=== PATIENT | male | born 1990 | race Caucasian/White ===

== ENCOUNTER 2016-11-28 18:58 | Emergency (ER) | payer OTHER ==
[~2016-11-28] VITALS: Ht 190.5 cm; Wt 80.5 kg
[~2016-11-28 18:58] MED LIST: ONDA4TAB7 SL
[2016-11-28 19:02] VITALS: TEMP 37.4; Ht 190.5 cm; Wt 80.5 kg
[2016-11-28] MEDS ORDERED: ALPR-411 PO (19:19)
[2016-11-28] MEDS ORDERED: AMOXICILLIN HOME PACK 250 MG/TAB PO STA (19:26)
[2016-11-28] MEDS ORDERED: AMOXICILLIN 250 MG CAP PO STA (19:26)
[2016-11-28] MEDS ORDERED: LIDOCAINE/EPINEPHRINE 1% 20 ML VIAL INFIL STA (19:26)
[2016-11-28] MEDS ORDERED: CHLORHEXIDINE GLUCONATE 0.12% 480 ML MT STA (19:26)
[2016-11-28] MEDS ORDERED: CHLORHEXIDINE GLUCONATE 0.12% 15 ML UDP MT STA (19:33)
--- NOTE | 2016-11-28 20:39 | EMERGENCY ROOM VISIT NOTE ---
ED Visit Note First contact with patient: 19:11 Chief Complaint: Facial Laceration History of Present Illness: This patient is a 26-year-old male who presents to the Emergency Department via private vehicle for evaluation of their facial laceration. Patient sustained the laceration while attempting to pull out a drawer on a dresser that was stuck, when it finally gave way and his hand slipped and accidentally punched himself in the face on the upper lip. They report a moderate amount of bleeding initially. They report no loss of consciousness. They deny any headache, visual disturbance, nausea, vomiting, or neck pain. They have tried nothing for the pain. Patient rates his current discomfort as a 4/10. Patient's Tetanus status is believed to be currently up-to -date. Medications: As noted below Allergies: None PMH: No pertinent SHx: Patient lives locally ROS: All pertinent positive and negative review of systems are appropriately documented in the History of Present Illness. Physical Exam: VITAL SIGNS - Vital signs and nursing notes were reviewed. Stable. GENERAL -26-year-old male appearing his stated age. Communicates well with provider and answers questions appropriately. SKIN - There is a 3 cm laceration noted intraorally in the linear fashion vertically on the upper lip midline without frenulum disruption as well as a 1 cm laceration at the philtrum vertically midline. The edges gape apart with traction. There is active bleeding appreciated. Laceration is communicating. No deep structures including vessels, musculature, or bony structures are appreciated. HEAD - Normocephalic. No Cobb's Sign or Raccoon's Eyes. No depressed skull fractures palpable. EYES - PERRL with EOMI bilaterally. Without subconjunctival hemorrhage. No hyphema. EARS - No deformities of external structures noted on gross examination bilaterally. No hemotympanum present. No tympanic perforation noted. NOSE - Midline and without cyanosis. No epistaxis or clear watery discharge noted. Septum midline without deviation. No septal hematoma noted. No overlying ecchymosis noted. MOUTH/OROPHARYNX - Without perioral cyanosis. Tongue midline with equal elevation of palate bilaterally. No blood noted in the oropharynx. No tonsillar hypertrophy, erythema, or exudates noted. No dental fractures noted. The teeth are in good repair. ED Course: Patient was seen and evaluated by myself. Patient had no focal neurological deficits. Patient's exam is otherwise unremarkable. Patient reports no headaches , visual disturbances, nausea, vomiting, or over-lethargy. Risks and benefits of performing primary wound closure versus no repair were discussed with the patient who verbalizes understanding. Verbal consent was obtained prior to performing the procedure. 3 cc of 1% buffered lidocaine with epinephrine was used to anesthetize the 2 lacerations. The wound was cleansed and prepped in the typical sterile fashion utilizing normal saline. 500 mg of amoxicillin by mouth, and Peridex mouthwash was utilized prior to the repair. The wound was sterilely draped. Once proper anesthetization was established, the wound was further examined and demonstrated no deep involvement but the 2 lacerations or communicating. The wound was copiously irrigated with normal saline. The inner lip wound was closed using 3 simple, 6-0 Vicryl sutures with the wound edges being well approximated. Attention was then turned to the exterior laceration. 3, 6-0 nylon sutures were utilized to close this well. Patient tolerated the procedure well. No complications were met. The wound was cleansed and dressed with a Bacitracin dressing. Patient educated on worrisome symptoms for return visit to the Emergency Department. Patient discharged to home in good condition. He'll be given a prescription for amoxicillin as well as a few day course of the Peridex mouthwash to help prevent infection secondary to the communicating laceration. In the evaluation and treatment of this patient, the following differential diagnoses were considered: Concussion, Contrecoup Injury, Brain Tumor, Depression, Encephalitis, Hypothyroidism, Meningitis, CVA, TIA, Migraine, Cluster Headache, Intracranial Abnormality, Intracranial Hemorrhage, Subdural Hematoma, Subarachnoid Hemorrhage, Hydrocephalus. Patient called to the emergency department and spoke with the pharmacist on . The patient was concern because his prescription for amoxicillin was sent to the pharmacy. Unfortunately last night, the prescription was printed, and handed to the patient as there was no pharmacy entered into the computer. I personally spoke with the patient around 1:20 PM, and he informed me that he was able to find a prescription, and had one have it filled and about one hour period. Current/Historical Medications Scheduled Alprazolam (Xanax), 0.5 MG PO PRN UD Amoxicillin (Amoxicillin), 500 MG PO TID Allergies Coded Allergies: No Known Allergies (Unverified , 08/05/12) Vital Signs Date Time Temp Pulse Resp B/P (MAP) Pulse Ox O2 Delivery O2 Flow Rate FiO2 11/28/16 20:52 93 16 137/81 97 11/28/16 19:02 37.4 97 16 153/85 96 Room Air Medications Administered Medications (Trade) Dose Ordered Sig/Fernando Route Start Time Stop Time Status Last Admin Dose Admin Amoxicillin (Amoxil 250MG Home Pack) 1 homepack UD STAT PO 11/28/16 19:26 11/28/16 19:29 DC 11/28/16 19:26 1 HOMEPACK Amoxicillin (Amoxil Cap) 500 mg NOW STAT PO 11/28/16 19:26 11/28/16 19:29 DC 11/28/16 19:33 500 MG Chlorhexidine Gluconate (Peridex Oral Soln) 15 ml NOW STAT MT 11/28/16 19:26 11/28/16 19:29 DC 11/28/16 20:35 15 ML Lidocaine/ Epinephrine (Xylocaine/Epine 1% Inj) 20 ml ONE STAT INFIL 11/28/16 19:26 11/28/16 19:29 DC 11/28/16 19:33 20 ML Chlorhexidine Gluconate (Peridex Oral Soln 15ML Udp) 15 ml NOW STAT MT 11/28/16 19:33 11/28/16 19:34 DC 11/28/16 19:45 15 ML Departure Information Impression Primary Impression: Laceration Dispostion Home / Self-Care Condition GOOD Prescriptions Amoxicillin (Amoxicillin) 500 Mg Cap 500 MG PO TID for 5 Days, #15 TABS Prov: Ridge Tom PA-C 11/28/16 Referrals David Howell M.D. (PCP) Patient Instructions [facility] Additional Instructions Discharge Instructions: You have received 3 sutures on your face. These sutures are NOT dissolvable and WILL need to be removed by a health care provider in 6 days. You can return to the Emergency Department or contact your Primary Care Provider to have the sutures removed. Proper wound care is essential for adequate wound healing and infection prevention. You can shower and clean the wound with soap and water. Do not scour over the wound, pat dry with a towel. Do not submerse the wound (i.e. bathe or dish wash) until the sutures have been removed. You can use an antibiotic ointment with a dressing over the wound for the next 2-3 days. After this time you may leave the wound dry and open to the air. If crust develops over the wound you can use a Q-tip to apply a 1:1 peroxide:water solution to clean the wound. Amoxicillin 500mg every 8 hours for 6 days. Look for signs of infection of the wound including: increased pain, swelling, foul discharge, streaking, or increased temperature. If any of these are noticed you should return to the Emergency Department for further assessment and treatment. As with any laceration you may have received nerve damage to the surrounding tissues. This damage may or may not be permanent. You should keep the area covered with sunscreen for the first 6 months to 1 year when at risk for exposure to help minimize scarring. You can also use scar reducing creams or Vitamin E oil to help minimize scarring. For pain control, you can use the following [id number] medicines (if >12 yo): - Regular strength (325mg/tab) Tylenol (acetaminophen) 2 tabs every 4-6 hours as needed. Do not exceed 12 tablets in a 24 hour period. Avoid taking more than 3 grams (3000 mg) of Tylenol per day. This includes any other sources of acetaminophen you may take on a regular basis. - Regular strength (200 mg/tab) Advil (ibuprofen) 1-2 tabs every 4-6 hours as needed. Do not exceed a dose of 3200 mg per day. Return to the emergency department if your symptoms worsen despite treatment course outlined above.
[2016-11-28] MEDS ORDERED: AMX500 PO (20:43)
[2016-11-28 20:52] VITALS: BP 137/81; PULSE 93; O2SAT 97
== END 2016-11-28 20:54 | disposition home or self-care (01) ==
LOC: C.EDB 18:59 → C.EDD 20:54
DX: S01.81XA Laceration without foreign body of other part of head, initial encounter (principal); W22.8XXA Striking against or struck by other objects, initial encounter